=== PATIENT | male | born 1955 | race Caucasian/White ===

== ENCOUNTER 2018-02-13 17:15 | Emergency (ER) | payer BC ==
[2018-02-13 17:20] VITALS: RESP 18; TEMP 98.1; O2SAT 98
[2018-02-13] MEDS ORDERED: Tdap Vaccine 0.5 ml Vial (10-64 yrs) IM ONE (17:31)
--- NOTE | 2018-02-13 17:32 | ED PDOC ---
HPI: General Adult Time Seen by Provider: 02/13/18 17:30 Chief Complaint (Nursing): Trauma Chief Complaint (Provider): HEAD TRAUMA/FALL History Per: Patient (62 Y/O MALE HERE WITH FAMILY [facility]. ADMITS DRINKING HEAVILY TODAY. FALL WITNESSED BY FRIEND TRIP AND FALL. NOTES PAIN UPPER AND LOWER BACK.) Past Medical History Reviewed: Historical Data, Nursing Documentation, Vital Signs Vital Signs: Last Vital Signs Temp 98.1 F 02/13/18 17:17 Pulse 61 02/13/18 17:17 Resp 18 02/13/18 17:17 BP 137/96 H 02/13/18 17:17 Pulse Ox 98 02/13/18 18:53 - Family History Family History: States: No Known Family Hx - Home Medications Home Medications: Ambulatory Orders Medication Instructions Recorded Docusate Sodium [Colace] 100 mg PO BID #14 capsule 02/13/18 Naproxen 375 mg PO Q8 PRN #21 tablet 02/13/18 - Allergies Allergies/Adverse Reactions: Allergies Allergy/AdvReac Type Severity Reaction Status Date / Time No Known Allergies Allergy Verified 02/13/18 17:17 Review of Systems ROS Statement: Except As Marked, All Systems Reviewed And Found Negative Physical Exam - Reviewed Nursing Documentation Reviewed: Yes Vital Signs Reviewed: Yes - Physical Exam Appears: Positive for: Well, Non-toxic, No Acute Distress Head Exam: Positive for: NORMAL INSPECTION, NORMOCEPHALIC. Negative for: ATRAUMATIC (ABRASION NOTED SUPERIOR ASPECT OF HEAD) Skin: Positive for: Normal Color, Warm, DRY Eye Exam: Positive for: EOMI, Normal appearance, PERRL ENT: Positive for: Normal ENT Inspection Neck: Positive for: Normal, Painless ROM Cardiovascular/Chest: Positive for: Regular Rate, Rhythm Respiratory: Positive for: CNT, Normal Breath Sounds Gastrointestinal/Abdominal: Positive for: Normal Exam, Soft Back: Positive for: Normal Inspection Rectal: Positive for: Tenderness (UPPER THORACIC REGION T4-T5; TENDERNESS NOTED LOWER BACK BY SACRUM) Extremity: Positive for: Normal ROM Neurologic/Psych: Positive for: Alert, Oriented - ECG O2 Sat by Pulse Oximetry: 98 - Progress ED Course And Treament: TDAP 0.5 ML IM X 1 DOSE PELVIC XRY: NEG xry of sacrum and coccyx: IMPRESSION: Minimally displaced coccygeal fracture. CT HEAD IMPRESSION: No CT evidence of acute intracranial abnormality. Thank you for allowing us to participate in the care of your patient. Dictated and Authenticated by: Pao Dodson MD 02/13/2018 6:38 PM Eastern Time ([place] & [place]) CT C CPINE IMPRESSION: Negative for acute fracture. Degenerative changes. Thank you for allowing us to participate in the care of your patient. Dictated and Authenticated by: Pao Dodson M CT T SPINE IMPRESSION: Negative for acute fracture. Detail/findings as above. Thank you for allowing us to participate in the care of your patient. Dictated and Authenticated by: Pao Dodson MD TDAP 0.5 ML IM X 1 DOSE Disposition - Clinical Impression Clinical Impression: Coccygeal fracture, Head injury - Patient ED Disposition Is Patient to be Admitted: No - Disposition Disposition: Routine/Home Disposition Time: 19:09 Condition: FAIR Prescriptions: Docusate Sodium [Colace] 100 mg PO BID #14 capsule Naproxen 375 mg PO Q8 PRN #21 tablet PRN Reason: Pain, Moderate (4-7) Instructions: Coccyx Fracture, Closed Head Injury (DC) Forms: [facility] ED School/Work Excuse
--- NOTE | 2018-02-13 17:58 | RAD ---
Date of service: 02/13/2018 PROCEDURE: Radiographs of the pelvis. HISTORY: LOWER BACK PAIN COMPARISON: None. FINDINGS: BONES: Pelvic Bones: Unremarkable. Hips: Grossly unremarkable. JOINTS: Sacroiliac Joints: Unremarkable. Pubic Symphysis: Unremarkable. OTHER FINDINGS: None. IMPRESSION: Unremarkable radiographs of the pelvis.
--- NOTE | 2018-02-13 17:59 | RAD ---
Date of service: 02/13/2018 PROCEDURE: Radiographs of the Sacrum and Coccyx HISTORY: R/O COCCYX INJURY COMPARISON: None available. TECHNIQUE: Frontal and lateral views of the sacrum and coccyx FINDINGS: BONES: Minimally displaced coccygeal fracture. SACROILIAC JOINTS: Unremarkable. OTHER FINDINGS: None. IMPRESSION: Minimally displaced coccygeal fracture.
[2018-02-13 19:20] VITALS: BP 130/90; PULSE 66
--- NOTE | 2018-02-14 08:53 | CT ---
Date of service: 02/13/2018 PROCEDURE: CT HEAD WITHOUT CONTRAST. HISTORY: HEAD INJURY COMPARISON: None available. TECHNIQUE: Axial computed tomography images were obtained through the head/brain without intravenous contrast. Radiation dose: Total exam DLP = 763.22 mGy-cm. This CT exam was performed using one or more of the following dose reduction techniques: Automated exposure control, adjustment of the mA and/or kV according to patient size, and/or use of iterative reconstruction technique. FINDINGS: HEMORRHAGE: No intracranial hemorrhage. BRAIN: No mass effect or edema. No atrophy or chronic microvascular ischemic changes. VENTRICLES: Unremarkable. No hydrocephalus. CALVARIUM: Unremarkable. PARANASAL SINUSES: Unremarkable as visualized. No significant inflammatory changes. MASTOID AIR CELLS: Unremarkable as visualized. No inflammatory changes. OTHER FINDINGS: None. IMPRESSION: No acute intracranial abnormalities. No significant findings to account for the clinical presentation. Concordant results (preliminary interpretation) provided by [employer]. Procedure Completed: 18:04. Preliminary ([facility]) Report: Dictated and Authenticated: 06:38. Final Interpretation: 08:51. February 14, 2018.
--- NOTE | 2018-02-14 08:55 | CT ---
Date of service: 02/13/2018 PROCEDURE: CT Cervical Spine without contrast HISTORY: FALL/ETOH COMPARISON: None available. TECHNIQUE: Axial computed tomography images were obtained of the cervical spine without the use of intravenous contrast. Coronal and sagittal reformatted images were created and reviewed. Radiation dose: Total exam DLP = 397.45 mGy-cm. This CT exam was performed using one or more of the following dose reduction techniques: Automated exposure control, adjustment of the mA and/or kV according to patient size, and/or use of iterative reconstruction technique. FINDINGS: VERTEBRAE: No fracture. Normal alignment. No destructive bony lesion. DISCS/SPINAL CANAL/NEURAL FORAMINA: Degenerative changes primarily at C6-7. Less pronounced changes throughout remainder of the mid and lower cervical spine. Proliferative common degenerative changes to the left of midline producing narrowing of the neural foramen at C3-4. Similar more symmetrical changes identified C5-6 and C6-7. PARASPINAL SOFT TISSUES: Unremarkable. OTHER FINDINGS: None. IMPRESSION: Multilevel degenerative changes. No acute findings. Concordant results (preliminary interpretation) provided by [employer]. Procedure Completed: 18:05. Preliminary ([facility]) Report: Dictated and Authenticated: 18:42. Final Interpretation: 08:54. February 14, 2018.
--- NOTE | 2018-02-14 08:59 | CT ---
Date of service: 02/13/2018 PROCEDURE: CT Thoracic Spine without contrast HISTORY: FALL/ETOH/TENDERNESS THORACIC REGION T4-T5 COMPARISON: None available. TECHNIQUE: Axial computed tomography images were obtained of the thoracic spine without intravenous contrast. Coronal and sagittal reformatted images were created and reviewed. Radiation dose: Total exam DLP = mGy-cm. This CT exam was performed using one or more of the following dose reduction techniques: Automated exposure control, adjustment of the mA and/or kV according to patient size, and/or use of iterative reconstruction technique. FINDINGS: VERTEBRAE: No acute fracture. Endplate sclerosis identified mid and lower thoracic spine. Loss of height of T8 vertebral body which appears to be chronic.. DISCS/SPINAL CANAL/NEURAL FORAMINA: Within the limits of the CT technique, no disc herniation seen. No central canal or neural foraminal stenosis.. PARASPINAL SOFT TISSUES: Unremarkable. OTHER FINDINGS: Unremarkable. IMPRESSION: No acute findings related to/accounting for the clinical presentation. Multilevel degenerative changes, endplate sclerosis, punctate sclerotic lesions. This should be correlated with any clinical history of malignancy or metabolic disease/ disorder. Concordant results (preliminary interpretation) provided by [employer]. Procedure Completed: 18:14 Preliminary ([facility]) Report: Dictated and Authenticated: 18:52. Final Interpretation: 08:57. February 14, 2018.
== END 2018-02-13 19:06 | disposition home or self-care (01) ==
LOC: H.ER 17:15
DX: S09.90XA Unspecified injury of head, initial encounter (principal); S32.2XXA Fracture of coccyx, initial encounter for closed fracture; W01.0XXA Fall on same level from slipping, tripping and stumbling without subsequent striking against object, initial encounter; Y92.89 Other specified places as the place of occurrence of the external cause; F10.10 Alcohol abuse, uncomplicated